=== PATIENT | male | born 1995 | race Caucasian/White ===

== ENCOUNTER 2017-05-22 23:59 | Emergency (ER) | payer OTHER ==
[2017-05-23 00:25] VITALS: BP 134/68; PULSE 75; TEMP 97.7; BMI 37.1
--- NOTE | 2017-05-23 01:24 | PDOC ---
*Physical Exam - Vital Signs Last Vital Signs Temp Pulse Resp BP Pulse Ox 97.7 F 75 18 134/68 97 05/23/17 00:21 05/23/17 00:21 05/23/17 00:21 05/23/17 00:21 05/23/17 00:21 Medical Decision Making - Medical Decision Making 05/23/17 01:24 Pt seen by the Advanced Practice Provider under my direct supervision Ancillary studies reviewed I agree with plan as outlined by the Advanced Practice Provider JAMEE Calles *DC/Admit/Observation/Transfer - Referrals Referrals: Anita Beverly MD [Primary Care Provider] - - Patient Instructions - Post Discharge Activity
--- NOTE | 2017-05-23 02:09 | PDOC ---
History of Present Illness - General Chief Complaint: Back Pain Stated Complaint: BACK PAIN Time Seen by Provider: 05/23/17 00:46 History Source: Patient Exam Limitations: No Limitations - History of Present Illness Initial Comments: CHIEF COMPLAINT: 22 y/o afebrile male with no significant PMH c/o back pain since slip and fall at work. 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 he states he's had back pain ever since, mostly with movement. He denies head trauma, LOC, neck pain, changes in vision/hearing, bleeding from ears or nose, n/v/d, CP, SOB, abd pain, saddle anesthesia, numbness/tingling in LEs. Vital signs on arrival are within normal limits. REVIEW OF SYSTEMS: GENERAL/CONSTITUTIONAL: No fever/chills. No weakness. No weight change. HEAD, EYES, EARS, NOSE AND THROAT: No change in vision. No ear pain or discharge. No sore throat. CARDIOVASCULAR: No chest pain or shortness of breath. RESPIRATORY: No cough, wheezing, or hemoptysis. GASTROINTESTINAL: No abd pain, nausea, vomiting, diarrhea. GENITOURINARY: No dysuria, frequency, or change in urination. MUSCULOSKELETAL: +back pain. No joint or muscle swelling or pain. No neck pain. SKIN: No rash or easy bruising. NEUROLOGIC: No headache, vertigo, loss of consciousness, or loss of sensation. PHYSICAL EXAM: GENERAL: The patient is awake, alert, and fully oriented, in no acute distress. he is well appearing and ambulatory with normal gait. HEAD: Normal with no signs of trauma. ENT: Pupils equal, round and reactive to light, extraocular movements intact, sclera anicteric, conjunctiva clear. Neck supple. ABDOMEN: Soft, non-distended, non-tender even to deep palpation, no hepatomegaly or splenomegaly, no masses. BACK: No midline spine TTP or step offs. Pain reproduced with palpation of right lumbar paravertebral muscles. Full flexion, extension and lateral movements of lumbar spine without pain. EXTREMITIES: Normal range of motion, no edema. NEUROLOGICAL: Normal speech, normal gait. CN II-XII grossly intact. No saddle anesthesia. SKIN: Warm, dry, normal turgor, no rashes or lesions noted. Past History - Past Medical History Allergies/Adverse Reactions: Allergies Allergy/AdvReac Type Severity Reaction Status Date / Time No Known Allergies Allergy Verified 05/23/17 00:21 Home Medications: Ambulatory Orders predniSONE [Deltasone -] 10 mg PO DAILY #20 tablet 09/21/15 - Suicide/Smoking/Psychosocial Hx Smoking History: Never smoked Have you smoked in the past 12 months: No Information on smoking cessation initiated: No Hx Alcohol Use: No Drug/Substance Use Hx: Yes (marijuana) Substance Use Type: None *Physical Exam - Vital Signs Last Vital Signs Temp Pulse Resp BP Pulse Ox 97.7 F 75 18 134/68 97 05/23/17 00:21 05/23/17 00:21 05/23/17 00:21 05/23/17 00:21 05/23/17 00:21 Medical Decision Making - Medical Decision Making A/P: 22 y/o male with musculoskeletal back pain s/p slip and fall tonight. Offered to take xrays but the patient declined, stating if his pain is worse in a few days he will return for xrays. Plan is to give PO motrin and discharge to home with supportive care instructions. The patient was instructed to return to the ER with any worsening or concerning symptoms. The patient verbalizes understanding of all instructions, has no further questions and is awaiting discharge. *DC/Admit/Observation/Transfer Diagnosis at time of Disposition: Fall from slipping on slippery surface Qualifiers: Encounter type: initial encounter Qualified Code(s): W01.0XXA - Fall on same level from slipping, tripping and stumbling without subsequent striking against object, initial encounter Back pain Qualifiers: Back pain location: low back pain Chronicity: acute Back pain laterality: right Sciatica presence: without sciatica Qualified Code(s): M54.5 - Low back pain - Discharge Dispostion Disposition: HOME Condition at time of disposition: Good - Referrals Referrals: Anita Beverly MD [Primary Care Provider] - - Patient Instructions Printed Discharge Instructions: DI for Low Back Pain Additional Instructions: Discharge Instructions: -Take 600mg of over the counter Ibuprofen every 6 hours with food for pain -Apply heating pad to affected area of back -Stretch your back multiple times per day -Return to the ER with any worsening or concerning symptoms - Post Discharge Activity Forms/Work/School Notes: Back to Work
[2017-05-23] MEDS ORDERED: IBUPROFEN 600 MG TABLET (FP) PO ONE ×2 (02:12→02:18)
== END 2017-05-23 02:31 | disposition home or self-care (01) ==
LOC: JER 23:59
DX: M54.5 Low back pain (principal); W01.0XXA Fall on same level from slipping, tripping and stumbling without subsequent striking against object, initial encounter; Y93.89 Activity, other specified; Y92.511 Restaurant or cafe as the place of occurrence of the external cause; Y99.0 Civilian activity done for income or pay
CPT/HCPCS: 99281-25